=== PATIENT | male | born 1940 | race Caucasian/White ===

== ENCOUNTER → 2016-05-19 | Outpatient (CLI) | payer MEDICARE, BC ==
[~2016-05-19] MED LIST: 3N1 COMMODE MC; ASPI-781 PO; CPM MC; FINA5TAB4 PO; OXYC-481 PO; TAMS0.4C2 PO; TRAM50TA2 PO; WALK1EAC23 MC
--- NOTE | 2016-05-19 10:13 | RADRPT ---
PROCEDURE: XR pelvis/left hip. CLINICAL INDICATION: Hip pain TECHNIQUE: AP pelvis/AP and lateral left hip views performed. COMPARISON: No prior studies are available for comparison. 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 There is no evidence of loosening of the prosthesis. There is moderate left hip osteoarthrosis. This is associated with joint space narrowing, subchondra l sclerosis and osteophytosis. There is normal osseous mineralization. No fractures or osseous les ions are identified. The soft tissues are unremarkable. There are surgical clips in the pelvis and the scrotal sac. IMPRESSION: Right total hip replacement. Moderate left hip osteoarthrosis. RPTAT: [facility] .Felice Caballero MD, Date Time Electronically viewed and signed by .Felice Caballero MD, on 05/19/2016 10:12 .B/
--- NOTE | 2016-05-19 10:14 | RADRPT ---
PROCEDURE: XR right knee. CLINICAL INDICATION: Knee pain. TECHNIQUE: Three views are available for review. 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 There is no evidence of loosening of the prosthesis. The osseous structures are normal in mineralization, architecture and alignment No acute fracture or dislocation is seen.No osseous lesions are identified. The soft tissues are unremarkable . there is a small alfredo prapatellar joint effusion. IMPRESSION: Unremarkable total knee replacement. Small suprapatellar joint effusion RPTAT: [facility] .Felice Caballero MD, MD Date Time Electronically viewed and signed by .Felice Caballero MD, on 05/19/2016 10:14 .B/
== END | disposition home or self-care (01) ==
LOC: HKI 08:49
PROVIDERS: ATTEND Orthopaedic Surgery
DX: M25.552 Pain in left hip (principal); Z96.641 Presence of right artificial hip joint; Z96.651 Presence of right artificial knee joint
CPT/HCPCS: 73502; 73562; G0463